=== PATIENT | female | born 1990 | race African-American/Black ===

== ENCOUNTER 2017-11-06 07:46 | Inpatient (IN) | END 2017-11-09 12:35 | disposition home or self-care (01) | DRG 765 ==

== ENCOUNTER 2017-11-16 20:29 | Emergency (ER) | END 2017-11-17 01:02 | disposition home or self-care (01) ==

== ENCOUNTER 2017-11-22 09:31 | Emergency (ER) | END 2017-11-22 09:58 | disposition left against medical advice (07) ==

== ENCOUNTER 2017-11-23 07:54 | Emergency (ER) | END 2017-11-23 09:36 | disposition home or self-care (01) ==